=== PATIENT | female | born 1985 | race Caucasian/White ===

== ENCOUNTER → 2020-07-05 | Emergency (ER) | payer OTHER ==
[~2020-07-05] VITALS: Ht 170.2 cm; Wt 62.6 kg
[~2020-07-05] MED LIST: IBUPROFEN 600 MG TABLET ONE
[2020-07-05 16:59] VITALS: BP 104/76
[2020-07-05] MEDS: IBUPROFEN 600 MG TABLET PO ONE (17:29)
[2020-07-05 18:17] LABS: CALCIUM, SERUM 8.9 mg/dL (8.5-10.1); CREATININE 0.7 mg/dL (0.6-1.3)
[2020-07-05 18:27] LABS: BASOPHILS % (AUTO) 0.4 % (0.0-2.0); EOSINOPHILS % (AUTO) 1.8 % (0.0-6.0); HEMATOCRIT 40 % (33-45); HEMOGLOBIN 13.7 g/dL (11.5-14.8); LYMPHOCYTES # (AUTO) 1.7 /CMM (0.8-4.8); LYMPHOCYTES % (AUTO) 27.3 % (20.0-44.0); MEAN CORPUSCULAR HGB CONC 34 g/dl (31.0-36.0); MEAN CORPUSCULAR VOLUME 89 fL (82-100); MONOCYTES # (AUTO) 0.5 /CMM (0.1-1.30); NEUTROPHILS % (AUTO) 62.5 % (43.0-81.0); PLATELET COUNT (AUTO) 261 /CMM (150-450); RED BLOOD CELL COUNT(AUTO) 4.52 MIL/uL (4.0-5.2); WHITE BLOOD COUNT (AUTO) 6.4 K/uL (4.3-11.0)
== END | disposition home or self-care (01) ==
LOC: ER 16:35
DX: U07.1 COVID-19 (principal)
CPT/HCPCS: 36415; 71045-TC; 80048-TC; 85025-TC